=== PATIENT | male | born 2000 | race African-American/Black ===

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

== ENCOUNTER 2022-06-01 09:15 | Emergency (ER) | payer OTHER ==
[2022-06-01 09:25] VITALS: BP 115/76; PULSE 68; RESP 18; TEMP 98; BMI 25.6
== END 2022-06-01 13:22 | disposition home or self-care (01) ==
LOC: JER 09:15
DX: H53.8 Other visual disturbances (principal)
CPT/HCPCS: 99281-25

== ENCOUNTER 2022-07-11 22:12 | Emergency (ER) | payer OTHER ==
[2022-07-11 22:16] VITALS: BP 114/72; PULSE 90; RESP 18; TEMP 97; BMI 27.1
[2022-07-11] MEDS ORDERED: diphenhydrAMINE HCL 25 MG CAPSULE (FP) PO ONE ×2 (23:37→23:43)
[2022-07-11] MEDS ORDERED: predniSONE 20 MG TABLET (UD) ONE (23:43)
[2022-07-11] MEDS ORDERED: predniSONE 10 MG TABLET (UD) ONE (23:44)
[2022-07-11] MEDS ORDERED: DEXAMETHASONE SOD PHOSPHATE 10 MG/1 ML VIAL IM ONE (23:50)
[2022-07-12] MEDS ORDERED: DEXAMETHASONE SOD PHOSPHATE 10 MG/1 ML VIAL ONE (00:01)
[2022-07-12] MEDS ORDERED: predniSONE 20 MG TABLET (UD) PO ONE (23:38)
== END 2022-07-12 00:34 | disposition home or self-care (01) ==
LOC: JERFT 22:12 → JER 22:12
PROC: 3E023GC Introduction of Other Therapeutic Substance into Muscle, Percutaneous Approach (ICD-10-PCS; principal; 2022-07-11)
DX: R21 Rash and other nonspecific skin eruption (principal)
CPT/HCPCS: 99284-25; J1100

== ENCOUNTER 2022-10-06 15:49 | Emergency (ER) | payer OTHER ==
[2022-10-06 15:59] VITALS: BP 125/78; PULSE 88; RESP 16; TEMP 98; BMI 25.0
[2022-10-06] MEDS ORDERED: LIDOCAINE 5% TOPICAL PATCH TP ONE (17:49)
[2022-10-06] MEDS ORDERED: IBUPROFEN 400 MG TABLET (FP) PO ONE ×2 (17:49→17:54)
[2022-10-06] MEDS ORDERED: ACETAMINOPHEN 500 MG TABLET (FP) PO ONE (17:49)
[2022-10-06] MEDS ORDERED: ACETAMINOPHEN 325 MG TABLET (FP) ONE (17:55)
[2022-10-06] MEDS ORDERED: LIDOCAINE 5% TOPICAL PATCH ONE (17:55)
[2022-10-06] MEDS ORDERED: LIDOCAINE PATCH REMOVAL MC SCH (22:00)
== END 2022-10-06 19:12 | disposition home or self-care (01) ==
LOC: JER 15:49
DX: R07.81 Pleurodynia (principal)
CPT/HCPCS: 71046-TC-FY; 93005; 93010; 99284-25

== ENCOUNTER 2023-01-20 17:48 | Emergency (ER) | payer OTHER ==
[2023-01-20 17:54] VITALS: BP 121/76; PULSE 73; RESP 18; TEMP 97.8; BMI 27.0
== END 2023-01-20 18:52 | disposition home or self-care (01) ==
LOC: JERFT 17:48
DX: L02.31 Cutaneous abscess of buttock (principal)
CPT/HCPCS: 99283-25

== ENCOUNTER 2023-01-22 20:57 | Emergency (ER) | payer OTHER ==
[2023-01-22 21:10] VITALS: BP 126/62; PULSE 66; RESP 17; TEMP 98.2; BMI 27.0
[2023-01-22] MEDS ORDERED: KETOROLAC TROMETHAMINE 15 MG/ML VIAL IM ONE (22:22)
[2023-01-22] MEDS ORDERED: KETOROLAC TROMETHAMINE 15 MG/ML VIAL ONE (22:23)
== END 2023-01-22 22:25 | disposition home or self-care (01) ==
LOC: JERFT 20:57
PROC: 3E0233Z Introduction of Anti-inflammatory into Muscle, Percutaneous Approach (ICD-10-PCS; principal; 2023-01-22)
PROC: 0J990ZZ Drainage of Buttock Subcutaneous Tissue and Fascia, Open Approach (ICD-10-PCS; 2023-01-22)
DX: L05.01 Pilonidal cyst with abscess (principal)
CPT/HCPCS: 99284-25

== ENCOUNTER 2023-01-24 13:32 | Emergency (ER) | payer OTHER ==
[2023-01-24 13:38] VITALS: BP 119/66; PULSE 75; RESP 18; TEMP 97.6; BMI 27.0
== END 2023-01-24 14:23 | disposition home or self-care (01) ==
LOC: JERFT 13:32
DX: Z48.00 Encounter for change or removal of nonsurgical wound dressing (principal)
CPT/HCPCS: 99281-25